=== PATIENT | female | born 1985 | race Caucasian/White ===

== ENCOUNTER 2017-05-25 06:55 | Emergency (ER) | payer MEDICAID, OTHER ==
[~2017-05-25] VITALS: Wt 57.2 kg
[~2017-05-25 06:55] MED LIST: PRENAT PO
[2017-05-25] MEDS ORDERED: ACETAMINOPHEN 500 MG TAB PO STA (07:25)
[2017-05-25] MEDS ORDERED: CEPHALEXIN 500 MG CAP PO ONE (07:30)
[2017-05-25] MEDS ORDERED: SULF1TAB31 PO (07:30)
[2017-05-25] MEDS ORDERED: MUPI22OI2 TOP (07:30)
[2017-05-25] MEDS ORDERED: TRIMETHOPRIM/SULFAMETHOX (DS) TAB PO ONE (07:30)
[2017-05-25] MEDS ORDERED: ELIM TOP (07:30)
[2017-05-25] MEDS ORDERED: CEPH250S33 PO (07:30)
--- NOTE | 2017-05-25 07:34 | ERD ---
ER Documentation Chief Complaint Chief Complaint rash x2 days HPI 31-year-old female presents with a spreading rash and irritation. It started on her face and has spread to her trunk and extremities. She denies fevers, vomiting, shortness of breath or chest pain. Is concerned about scabies. Patient denies any stimulant or methamphetamine or drug abuse. ROS All systems reviewed and are negative except as per history of present illness. Medications Home Meds Active Scripts Mupirocin* (Bactroban*) 2% -22 Gram Oint...g., 1 APPLIC TOP TID for 7 Days, #1 TUB SITE OF APPLICATION: Prov:CARLITOS JULIAN MD 05/25/17 Cephalexin* (Cephalexin* Susp) 250 Mg/5 Ml Susp.recon, 250 MG PO Q6 for 7 Days, #1 BOTTLE Prov:CARLITOS JULIAN MD 05/25/17 Sulfamethoxazole/Trimethoprim* (Bactrim Ds* Tablet) 1 Each Tablet, 1 TAB PO BID for 7 Days, TAB Prov:CARLTIOS JULIAN MD 05/25/17 Permethrin* (Elimite*) 5% Cr, 1 APPLIC TOP ONCE for 1 Day, TUB Apply at night. Avoid eyes and mouth. Wash off in morning with linens as directed. Prov:CARLITOS JULIAN MD 05/25/17 Reported Medications Multivit/Min/Fol Ac/Iron/Pren* ( S*) 1 Tab Tab, 1 TAB PO DAILY, TAB 05/15/16 Allergies Allergies: Coded Allergies: No Known Allergy (Unverified , 05/15/16) PMhx/Soc History of Surgery: No Anesthesia Reaction: No Hx Neurological Disorder: No Hx Respiratory Disorders: No Hx Cardiac Disorders: No Hx Psychiatric Problems: No Hx Miscellaneous Medical Probl: Yes (chronic back pain) Hx Alcohol Use: Yes ("OCASSIONALLY") Hx Substance Use: No Hx Tobacco Use: Yes Physical Exam Vitals Vital Signs Date Time Temp Pulse Resp B/P Pulse Ox O2 Delivery O2 Flow Rate FiO2 05/25/17 06:57 97.7 99 18 117/72 99 Physical Exam Const: [], hyperverbal no apparent distress. Head: Atraumatic Eyes: Normal Conjunctiva ENT: Normal External Ears, Nose and Mouth. Neck: Full range of motion..~ No meningismus. Resp: Clear to auscultation bilaterally Cardio: Regular rate and rhythm, no murmurs Abd: Soft, non tender, non distended. Normal bowel sounds Skin: No petechiae or purpura. Scattered excoriated erythematous skin lesions on the face, trunk and extremities with many picked scabs. No induration, streaking, vesicles or appreciable fluctuance. Back: No midline or flank tenderness Ext: No cyanosis, or edema Neur: Awake and alert Psych: Normal Mood and Affect Results 24 hrs Current Medications Medications (Trade) Dose Ordered Sig/David Route PRN Reason Start Time Stop Time Status Last Admin Dose Admin Trimethoprim/ Sulfamethoxazole (Bactrim (Ds)) 1 tab ONCE ONCE PO 05/25/17 07:30 05/25/17 07:31 DC Cephalexin (Keflex) 500 mg ONCE ONCE PO 05/25/17 07:30 05/25/17 07:31 DC Acetaminophen (Tylenol Tab) 500 mg ONCE STAT PO 05/25/17 07:25 05/25/17 07:26 DC Procedures/MDM Presents with scaling skin lesions on the trunk and extremities. Patient wishes to be treated for scabies although clinical appearance suggest impetigo spreading folliculitis. History and exam concerning for dermatitis related to stimulant use. There is no evidence of sepsis, life-threatening rashes, purpura. No appreciable abscess is to be drained today. Patient will be treated with Keflex, Bactrim 1 dose here and a prescription at home as well as Bactroban primary care follow-up and return precautions. The patient was stable with no new complaints during the ER course. Clinically, there is no current evidence to suggest meningitis, sepsis, acute abdomen, pneumonia, acute coronary syndrome, pulmonary embolism, or any other emergent condition appearing to require further evaluation or hospitalization. The patient should certainly return for any new or worsening symptoms per the aftercare instructions. They should otherwise follow-up with her primary care doctor for reevaluation this week. Departure Diagnosis: Primary Impression: Impetigo Additional Impression: Rash Condition: Stable Patient Instructions: Impetigo, Scabies Referrals: NO PRIMARY,CARE PHYSICIAN (PCP) Additional Instructions: Treat for scabies but likely impetigo. Avoid scratching and keep hands clean. Recheck with primary doctor this week or for new or worsening symptoms. CARLITOS JULIAN MD May 25, 2017 07:34
== END 2017-05-25 07:45 | disposition home or self-care (01) ==
LOC: FTE 06:55
DX: L01.00 Impetigo, unspecified (principal)
CPT/HCPCS: Z7502; Z7610; 99284

== ENCOUNTER 2017-07-11 09:19 | Emergency (ER) | payer OTHER ==
[~2017-07-11] VITALS: Ht 152.4 cm; Wt 52.0 kg
[~2017-07-11 09:19] MED LIST changes: +CEPH250S33 PO; +ELIM TOP; +MUPI22OI2 TOP; +SULF1TAB31 PO
[2017-07-11 09:21] VITALS: Ht 152.4 cm; Wt 52.0 kg
[2017-07-11] MEDS ORDERED: HYDR-902 PO (09:40)
[2017-07-11] MEDS ORDERED: IBUP800T25 PO (09:40)
[2017-07-11] MEDS ORDERED: PRED20TA PO (09:40)
--- NOTE | 2017-07-11 09:49 | ERD ---
ER Documentation Chief Complaint Chief Complaint back pain HPI Patient is a 31-year-old female who presents complaining of low back pain. She denies any recent injury but has a history of chronic back pain secondary to old pelvic fracture. She denies any bowel or bladder incontinence but occasionally she has numbness and tingling. No dysuria hematuria or frequency. She is ambulatory. Has not taken any medications for pain. No fever. ROS All systems reviewed and are negative except as per history of present illness. Medications Home Meds Active Scripts Hydrocodone/Acetaminophen ([place] 10-325 Tablet) 1 Each Tablet, 1 EACH PO Q6, # 15 TAB Prov:FIDENCIO MAYA PA-C 07/11/17 Prednisone* (Prednisone*) 20 Mg Tab, 40 MG PO DAILY, #8 TAB Prov:FIDENCIO MAYA PA-C 07/11/17 Ibuprofen* (Motrin*) 800 Mg Tab, 800 MG PO Q6, #30 TAB Prov:FIDENCIO MAYA PA-C 07/11/17 Mupirocin* (Bactroban*) 2% -22 Gram Oint...g., 1 APPLIC TOP TID for 7 Days, #1 TUB SITE OF APPLICATION: Prov:CARLITOS JULIAN MD 05/25/17 Cephalexin* (Cephalexin* Susp) 250 Mg/5 Ml Susp.recon, 250 MG PO Q6 for 7 Days, #1 BOTTLE Prov:CARLITOS JULIAN MD 05/25/17 Sulfamethoxazole/Trimethoprim* (Bactrim Ds* Tablet) 1 Each Tablet, 1 TAB PO BID for 7 Days, TAB Prov:CARLITOS JULIAN MD 05/25/17 Permethrin* (Elimite*) 5% Cr, 1 APPLIC TOP ONCE for 1 Day, TUB Apply at night. Avoid eyes and mouth. Wash off in morning with linens as directed. Prov:CARLITOS JULIAN MD 05/25/17 Reported Medications Multivit/Min/Fol Ac/Iron/Pren* ( S*) 1 Tab Tab, 1 TAB PO DAILY, TAB 05/15/16 Allergies Allergies: Coded Allergies: No Known Allergy (Unverified , 07/11/17) PMhx/Soc History of Surgery: No Anesthesia Reaction: No Hx Neurological Disorder: No Hx Respiratory Disorders: No Hx Cardiac Disorders: No Hx Psychiatric Problems: No Hx Miscellaneous Medical Probl: Yes (chronic back pain) Hx Alcohol Use: Yes ("OCASSIONALLY") Hx Substance Use: No Hx Tobacco Use: Yes Smoking Status: Current every day smoker FmHx Family History: No diabetes Physical Exam Vitals Vital Signs Date Time Temp Pulse Resp B/P Pulse Ox O2 Delivery O2 Flow Rate FiO2 07/11/17 09:21 98.7 102 20 128/78 98 Physical Exam Const: [] Head: Atraumatic Eyes: Normal Conjunctiva ENT: Normal External Ears, Nose and Mouth. Neck: Full range of motion..~ No meningismus. Resp: Clear to auscultation bilaterally Cardio: Regular rate and rhythm, no murmurs Abd: Soft, non tender, non distended. Normal bowel sounds Skin: No petechiae or rashes Back: No midline or flank tenderness, ambulatory, sensation to light touch is intact Results 24 hrs Current Medications Medications (Trade) Dose Ordered Sig/David Route PRN Reason Start Time Stop Time Status Last Admin Dose Admin Acetaminophen/ Hydrocodone Bitart ([place] (10/325)) 1 tab ONCE ONCE PO 07/11/17 10:00 07/11/17 10:01 07/11/17 09:43 Procedures/MDM The differential diagnosis includes but is not limited to muscle strain, ligament strain, contusion, arthritis, discogenetic disease, non-musculoskeletal , cauda equina syndrome, cord compression, abscess and others. Patient has history of chronic back pain. I offered her Toradol but she declined. She was given [place] here and discharged with ibuprofen, norco, and prednisone. Patient counseled regarding my diagnostic impression and care plan. Prior to discharge all questions answered. Pt agrees with treatment plan and understands strict return precautions. Pt is instructed to follow up with primary care provider within 24-48 hours. Precautionary instructions provided including instructions to return to the ER if not improving or for any worsening or changing symptoms or concerns. Departure Diagnosis: Primary Impression: Back pain Condition: Stable Patient Instructions: Back Pain (Acute Or Chronic) Additional Instructions: Call your primary care doctor TOMORROW for an appointment during the next 1-2 days.See the doctor sooner or return here if your condition worsens before your appointment time. FIDENCIO MAYA PA-C Jul 11, 2017 09:49
[2017-07-11] MEDS ORDERED: HYDROCODONE/APAP (10/325) TAB PO ONE (10:00)
== END 2017-07-11 09:55 | disposition home or self-care (01) ==
LOC: FTE 09:19
DX: M54.5 Low back pain (principal); F17.210 Nicotine dependence, cigarettes, uncomplicated
CPT/HCPCS: Z7502; Z7610; 99284